=== PATIENT | female | born 1970 ===

== ENCOUNTER 2016-12-27 10:59 | Emergency (ER) | payer OTHER, BC ==
[2016-12-27 11:12] VITALS: RESP 16; TEMP 98.2; O2SAT 98
--- NOTE | 2016-12-27 12:27 | C.PDOC ---
History Of Present Illness 45 year old female comes in complaining of pain to the left wrist, buttocks, and right ankle after a mechanical fall this morning. Patient notes she tripped and fell on tilled floor. Denies LOC, weakness, numbness, dizziness, or any other complaints. - HPI Time Seen by Provider: 12/27/16 11:30 Chief Complaint (Nursing): Lower Extremity Problem/Injury History Per: Patient History/Exam Limitations: no limitations Onset/Duration Of Symptoms: Hrs (Morning) Location Of Injury: Right: Ankle, Left: Wrist, Posterior: Buttock Severity: Mild Recent travel outside of the [place]: No Additional History Per: Patient - Fall Fall:Prior To Injury: Tripped Past Medical History Reviewed: Historical Data, Nursing Documentation, Vital Signs Vital Signs: Last Vital Signs Temp 98.2 F 12/27/16 11:09 Pulse 70 12/27/16 12:48 Resp 16 12/27/16 12:48 BP 140/90 12/27/16 12:48 Pulse Ox 98 12/27/16 14:04 - Medical History PMH: Asthma Surgical History: No Surg Hx Family History: States: Unknown Family Hx - Social History Hx Alcohol Use: No Hx Substance Use: No - Immunization History Hx Tetanus Toxoid Vaccination: No Hx Influenza Vaccination: No Hx Pneumococcal Vaccination: No Review Of Systems Except As Marked, All Systems Reviewed And Found Negative. Musculoskeletal: Positive for: Hand Pain (Left wrist), Foot Pain (Right ankle), Other (Buttocks) Neurological: Negative for: Weakness, Numbness, Dizziness, Other (LOC) Physical Exam - Physical Exam Appears: Non-toxic, No Acute Distress Skin: Warm, Dry Head: Atraumatic, Normacephalic, No Tenderness, No Swelling, No Abrasion, No Laceration Eye(s): bilateral: Normal Inspection, PERRL, EOMI Neck: Normal ROM, No Midline Cervical Tenderness, Supple Chest: Symmetrical, No Tenderness Cardiovascular: Rhythm Regular Respiratory: Normal Breath Sounds, No Rales, No Rhonchi, No Wheezing Back: Normal Inspection, Vertebral Tenderness (Sacral and coccyx area), No Decreased ROM, No Muscle Spasm, Paraspinal Tenderness, No Other (No swelling) Extremity: Normal ROM (Left wrist and right ankle), Tenderness (Non-focal tenderness to the left wrist. Tenderness to the lateral aspect of the right ankle.), Capillary Refill (<2secs), No Deformity, No Swelling Extremity: Bilateral: Normal Color And Temperature, Normal ROM Pulses: Left Radial: Normal, Right Radial: Normal, Left Dorsalis Pedis: Normal, Right Dorsalis Pedis: Normal Neurological/Psych: Oriented x3, Normal Speech, Normal Motor, Normal Sensation, Other (NO focal deficit) Gait: Steady ED Course And Treatment O2 Sat by Pulse Oximetry: 98 (RA) Pulse Ox Interpretation: Normal Medical Decision Making Medical Decision Making: Impression: joint pains s.p fall Plan: * Tylenol * Xray LS spine, Wrist, ankle Progress: Xrays interpreted by me no ankle fracture or dislocation; no wrist fracture or abnormality; LS spine xrays shows straightening of lordosis, likely spasms, no fracture or listhesis. On re-eval, patient reports pain improved and is ambulatory without signs of discomfort. Patient advised to rest, ice and take NSAIDs for pain. Instruct to follow up with PCP. Disposition Counseled Patient/Family Regarding: Need For Followup - Disposition Referrals: [facility] [Outside] [facility] [Outside] Disposition: HOME/ ROUTINE Disposition Time: 12:27 Condition: STABLE Additional Instructions: Your xray was normal, no fracture. Please apply ice to area 15 minutes three times a day. Take Motrin as needed for pain every 6 hours, with food to not upset stomach. Follow up with orthopedic if pain persists over one week. Prescriptions: Cyclobenzaprine [Cyclobenzaprine HCl] 10 mg PO TID #21 tab Ibuprofen [Motrin] 600 mg PO Q8 #30 tab Instructions: Ankle Sprain (ED), Contusion in Adults (ED) Forms: [employer] ([place]), Work Excuse - POA Present On Arrival: Falls Or Trauma - Clinical Impression Clinical Impression: Accidental fall, Wrist sprain, Ankle sprain, Contusion of back - Scribe Statement The provider has reviewed the documentation as recorded by the Scribtoño roman All medical record entries made by the Scribe were at my direction and personally dictated by me. I have reviewed the chart and agree that the record accurately reflects my personal performance of the history, physical exam, medical decision making, and the department course for this patient. I have also personally directed, reviewed, and agree with the discharge instructions and disposition.
[2016-12-27 12:49] VITALS: BP 140/90; PULSE 70
--- NOTE | 2016-12-27 13:51 | RAD ---
PROCEDURE: Left Wrist Radiographs. HISTORY: pain s.p fall COMPARISON: None. FINDINGS: BONES: No evidence of acute fracture. JOINTS: Normal. No dislocation. SOFT TISSUES: Mild soft tissue swelling P OTHER FINDINGS: None. IMPRESSION: No radiographic evidence of acute fracture. Mild arthritic changes.
--- NOTE | 2016-12-27 13:53 | RAD ---
PROCEDURE: Right Ankle Radiographs. HISTORY: pain s.p fall COMPARISON: None FINDINGS: BONES: Normal. No fracture. JOINTS: Normal. No osteoarthritis. Ankle mortise maintained. Talar dome intact SOFT TISSUES: Limited pre ankle soft tissue edema is appreciated. OTHER FINDINGS: None. IMPRESSION: Limited pre ankle soft tissue edema is identified. No acute fracture or dislocation.
--- NOTE | 2016-12-27 14:11 | RAD ---
PROCEDURE: Radiographs of the Lumbar Spine. HISTORY: pain s.p fall COMPARISON: No prior. FINDINGS: BONES: Normal alignment. No listhesis. No fracture. DISC SPACES: Limited spondylosis appreciate the L3-4 level with partially calcified L5-S1 intervertebral disc appreciated. OTHER FINDINGS: None. IMPRESSION: Mild degenerative disease appreciate the mid inferior lumbar spine without fracture or spondylolisthesis appreciated.
== END 2016-12-27 12:48 | disposition home or self-care (01) ==
LOC: C.ER 10:59
DX: S63.502A Unspecified sprain of left wrist, initial encounter (principal); S93.401A Sprain of unspecified ligament of right ankle, initial encounter; S30.0XXA Contusion of lower back and pelvis, initial encounter; W01.0XXA Fall on same level from slipping, tripping and stumbling without subsequent striking against object, initial encounter